=== PATIENT | female | born 1980 | race Hispanic/Latino ===

== ENCOUNTER 2017-08-16 16:56 | Emergency (ER) | payer SELFPAY ==
[2017-08-16] MEDS ORDERED: Famotidine/PF 20 mg/2ml Vial ONE (17:25)
[2017-08-16] MEDS ORDERED: Mag-Al 1200 mg/1200 mg/30 ML UDCUP ONE (17:25)
[2017-08-16] MEDS ORDERED: Lidocaine Viscous Sol 2% 15 ml UD Cup ONE (17:25)
[2017-08-16 17:31] LABS: #Eosinphils 0.1 thou/uL (0.0-0.7); #Lymphocytes 1.6 thou/uL (1.20-3.40); #Monocytes 0.5 thou/uL (0.11-0.59); #Neutrophils 2.8 thou/uL (1.40-6.50); %Basophils 0.5 % (0.0-1.0); %Eosinophils 1.5 % (0.0-10.0); %Lymphocytes 32.1 % (21.0-51.0); %Monocytes 9.8 % (0.0-10.0); Hematocrit 40.7 % (36.0-47.0); Mean Platelet Volume 9.6 fL (7.4-10.4); Red Blood Cell (RBC) Count 4.42 mill/uL (4.20-5.40); White Blood Cell (WBC) Count 4.9 thou/uL (4.8-10.8)
[2017-08-16] MEDS ORDERED: Ondansetron HCl/PF 4 MG/2 ML Vial ONE (17:39)
[2017-08-16 17:43] LABS: Bilirubin Negative (Negative); Blood, Urine Trace (Negative); Glucose, Urine (Dipstick) Negative (Negative); Ketone, Urine Negative (Negative); Nitrite Negative (Negative); Protein, Urine (Dipstick) Negative (Neg-Trace); Urobilinogen 0.2 mg/dL (0.2-1.0)
[2017-08-16 17:45] LABS: Bacteria/HPF None Seen HPF (None Seen); Hyaline Casts/LPF 0-3 HYALINE CAST LPF (0-3 Hyaline); RBC/HPF 0-3 HPF (0-3); Squamous Epithelial 0-3 HPF (0-3); WBC/HPF None Seen HPF (0-3)
[2017-08-16 17:53] LABS: ALT (SGPT) 12 U/L (8-55); AST (SGOT) 16 U/L (5-34); Alkaline Phosphatase 75 U/L (40-150); Anion Gap 12 mmol/L (10-20); BUN (Urea Nitrogen) 12 mg/dL (7.0-18.7); Bilirubin, Total 0.6 mg/dL (0.2-1.2); Calc. Creatinine Clearance 0 mL/min (70-130); Calcium 9.2 mg/dL (7.8-10.44); Carbon Dioxide 25 mmol/L (22-29); Chloride 107 mmol/L (98-107); Estimated GFR-MDRD Greater than 90; Globulin 3.1 g/dL (2.4-3.5); Lipase 36 U/L (8-78); Protein, Total 7.4 g/dL (6.0-8.3)
--- NOTE | 2017-08-16 19:50 | RAD ---
CHEST ONE VIEW: History: Epigastric pain. Nausea, vomiting. History of ulcers. Comparison: 05-29-14 FINDINGS: Lungs are clear. Stable left sided defibrillator. Normal cardiac silhouette. The pulmonary vessels a nd hilum are normal. Costophrenic angles are clear. No consolidation or mass. No pneumothorax or oss eous abnormality. IMPRESSION: No acute cardiopulmonary process. POS: [facility]
--- NOTE | 2017-09-12 15:29 | EKG ---
Test Reason : CARDIAC Blood Pressure : / mmHG Vent. Rate : 066 BPM Atrial Rate : 066 BPM P-R Int : 124 ms QRS Dur : 070 ms QT Int : 494 ms P-R-T Axes : 052 042 047 degrees QTc Int : 517 ms Normal sinus rhythm Prolonged QT Abnormal ECG Confirmed by ANT BOWIE D.O. ([id number]), video news editor GABE LENZ ([id number] on 09/12/2017 3:29:23 PM Referred By: Confirmed By:ANT BOWIE D.O.
== END 2017-08-16 18:50 | disposition home or self-care (01) ==
LOC: ERS 16:56
DX: K21.9 Gastro-esophageal reflux disease without esophagitis (principal); I49.9 Cardiac arrhythmia, unspecified; Z79.899 Other long term (current) drug therapy
CPT/HCPCS: 71010; 80053; 81003; 81015; 81025; 83690; 85025; 93005; 96374; 96375; J2405; S0028